=== PATIENT | male | born 1960 | race Caucasian/White ===

== ENCOUNTER → 2016-11-17 | Outpatient (CLI) | payer OTHER ==
[~2016-11-17] MED LIST: ARIXTRA7.5 MG/0.6 SC; BACTRIM,SEPT1 TABLET PO; CARVEDILOL3.125 MG PO; COREG6.25 M1 PO; COUMADIN2 MG PO; Coreg PO; ENOXAPARIN80 MG/0.8 SC; FLEXERIL10 MG PO; FOLIC ACID1 MG PO; FONDAPARIN7.5 MG/0.6 SC; GABAPENTIN100 MG PO; LORTAB 5-325 M1 EACH PO; LOSARTAN POTASS50 MG PO; Lasix PO; MIRALAX17 GM PO; MORPHINE SULFAT15 M1 PO; NEURONTIN300 MG PO; NITROGLYCERIN0.4 MG SL; NITROSTAT0.4 MG SL; OXYCODONE5 MG PO; PERCOCET 5/31 TABLET PO; PRAVACHOL20 MG PO; PRAVASTATIN SOD10 MG PO; PRINIVIL10 MG PO; ROXICODONE5 MG PO; VENTOLIN HFA18 GM IH; VOLTAREN75 MG PO; ZESTRIL,PRINIVI10 MG PO; ZESTRIL10 MG PO; Zestril,Prinivil PO
== END | disposition home or self-care (01) ==
LOC: NUC 09:29
DX: D69.3 Immune thrombocytopenic purpura (principal); M51.36 Other intervertebral disc degeneration, lumbar region; M17.12 Unilateral primary osteoarthritis, left knee
CPT/HCPCS: 78306; A9503

== ENCOUNTER 2017-03-22 10:37 | Emergency (ER) | payer OTHER ==
[~2017-03-22] VITALS: Ht 170.2 cm; Wt 94.6 kg
[~2017-03-22 10:37] MED LIST changes: +DEXAMETHASONE6 MG PO; +METFORMIN HCL500 MG PO; +MYCELEX10 MG PO; +PROAIR HFA8.5 GM IH
[2017-03-22 11:32] LABS: HEMATOCRIT 52.6 % (38.0-50.0); MCH 32.4 PG (29.0-34.0); MCV 95.3 FL (86-99); RBC DIS.WIDTH-CV 13.5 % (11.8-14.6); RED BLOOD COUNT 5.52 M/uL (4.00-5.50)
[2017-03-22 11:44] LABS: CHLORIDE 105 mEq/L (99-109); POTASSIUM 4.1 mEq/L (3.7-5.4); SODIUM 136 mEq/L (136-147)
[2017-03-22 11:46] LABS: GLUCOSE 157 mg/dL (70-99)
[2017-03-22 11:48] LABS: ANION GAP 12 MEQ/L (2-14)
[2017-03-22 11:50] LABS: GFR ESTIMATE (CALCULATED) > 59 mL/min/
[2017-03-22 11:51] LABS: UREA NITROGEN (BUN) 11 mg/dL (9-23)
[2017-03-22 12:29] LABS: MEAN PLAT.VOLUME 11.9 uM^3 (9.0-12.4); PLAT.SUFFICIENCY DECREASED; PLATELET COUNT 117 K/uL (156-360)
[2017-03-22] MEDS ORDERED: CLEOCIN300 MG PO (12:54)
[2017-03-22 13:00] VITALS: BP 145/94
[2017-03-23] MEDS ORDERED: COREG12.5 M1 PO (15:04)
[2017-03-23] MEDS ORDERED: LOSARTAN POTAS100 MG PO (15:05)
[2017-03-23] MEDS ORDERED: AMOX TR-K CLV1 EAC4 PO (15:06)
== END 2017-03-22 13:34 | disposition left against medical advice (07) ==
LOC: EME 10:37
PROVIDERS: Emergency Medicine
DX: L03.311 Cellulitis of abdominal wall (principal); I10 Essential (primary) hypertension; Z79.84 Long term (current) use of oral hypoglycemic drugs; Z87.891 Personal history of nicotine dependence
CPT/HCPCS: 74176; 80048; 83605; 85027; 87040; 99281; 99283

== ENCOUNTER 2017-03-23 12:17 | Inpatient (IN) | payer OTHER ==
[~2017-03-23] VITALS: Ht 170.2 cm; Wt 93.2 kg
[~2017-03-23 12:17] MED LIST changes: +CLEOCIN300 MG PO
[2017-03-23 14:28] LABS: BASOPHIL COUNT 0.1 K/uL (0-0.1); EOSINOPHIL (%) 0.7 % (0-5); EOSINOPHIL COUNT 0.1 K/uL (0-0.3); HEMATOCRIT 49.4 % (38.0-50.0); IMMATURE GRANULOCYTE (%) 0.8 % (0.0-0.7); IMMATURE GRANULOCYTE COUNT 0.1 K/uL; INSTRUMENT ABS NEUTROPHIL CT 11.8 K/uL; LYMPHOCYTE COUNT 2.7 K/uL (1.0-2.8); MCH 32.1 PG (29.0-34.0); MCHC 33.6 G/DL (30.0-36.0); MCV 95.6 FL (86-99); MEAN PLAT.VOLUME 11.6 uM^3 (9.0-12.4); MONOCYTE (%) 7.3 % (3-12); MONOCYTE COUNT 1.2 K/uL (0-0.8); NEUTROPHIL COUNT 11.8 K/uL (1.8-6.4); PLATELET COUNT 104 K/uL (156-360); RBC DIS.WIDTH-CV 13.2 % (11.8-14.6); RBC DIS.WIDTH-SD 47.4 % (39-53); RED BLOOD COUNT 5.17 M/uL (4.00-5.50); WHITE BLOOD COUNT 15.9 K/uL (4.1-10.2)
[2017-03-23 14:36] LABS: CHLORIDE 108 mEq/L (99-109); POTASSIUM 3.9 mEq/L (3.7-5.4); SODIUM 139 mEq/L (136-147)
[2017-03-23 14:38] LABS: GLUCOSE 174 mg/dL (70-99)
[2017-03-23 14:39] LABS: ANION GAP 10 MEQ/L (2-14)
[2017-03-23 14:42] LABS: GFR ESTIMATE (CALCULATED) > 59 mL/min/
[2017-03-23 14:43] LABS: UREA NITROGEN (BUN) 11 mg/dL (9-23)
[2017-03-23] MEDS ORDERED: COREG12.5 M1 PO (15:04)
[2017-03-23] MEDS ORDERED: LOSARTAN POTAS100 MG PO (15:05)
[2017-03-23] MEDS ORDERED: AMOX TR-K CLV1 EAC4 PO (15:06)
[2017-03-23 18:40] VITALS: BP 143/78
[2017-03-23 19:11] VITALS: BP 134/78
[2017-03-23 23:56] VITALS: BP 141/71
[2017-03-24 04:26] VITALS: BP 144/73
[2017-03-24 07:00] LABS: HEMATOCRIT 45.2 % (38.0-50.0); MCH 33.5 PG (29.0-34.0); MCHC 34.5 G/DL (30.0-36.0); RBC DIS.WIDTH-CV 13.6 % (11.8-14.6); RBC DIS.WIDTH-SD 48.6 % (39-53); RED BLOOD COUNT 4.66 M/uL (4.00-5.50); WHITE BLOOD COUNT 13.7 K/uL (4.1-10.2)
[2017-03-24 07:05] VITALS: BP 136/71
[2017-03-24 07:25] LABS: ANION GAP 9 MEQ/L (2-14); CHLORIDE 106 MEQ/L (99-109); GFR ESTIMATE (CALCULATED) > 59 mL/min/; GLUCOSE 124 mg/dL (70-99); POTASSIUM 3.8 MEQ/L (3.7-5.4); SAMPLE HEMOLYSIS CHECK 0; SAMPLE ICTERIC CHECK 0; SAMPLE LIPEMIA CHECK 0; SODIUM 138 MEQ/L (136-147); UREA NITROGEN (BUN) 12 mg/dL (9-23)
[2017-03-24 07:57] LABS: MEAN PLAT.VOLUME 11.4 uM^3 (9.0-12.4); PLAT.SUFFICIENCY DECREASED; PLATELET COUNT 101 K/uL (156-360)
[2017-03-24 11:10] LABS: POINT-OF-CARE METER ID UU14208750
[2017-03-24 11:19] VITALS: BP 144/72
[2017-03-24 15:49] VITALS: BP 150/86
[2017-03-24 17:18] LABS: POINT-OF-CARE METER ID UU14208750
[2017-03-24 20:25] VITALS: BP 161/86
[2017-03-24 21:40] LABS: POINT-OF-CARE METER ID UU14208750
[2017-03-25 00:01] VITALS: BP 155/70
[2017-03-25 06:17] LABS: POINT-OF-CARE METER ID UU14208750
[2017-03-25 07:16] LABS: BASOPHIL COUNT 0.1 K/uL (0-0.1); EOSINOPHIL (%) 1.2 % (0-5); EOSINOPHIL COUNT 0.2 K/uL (0-0.3); HEMATOCRIT 46.3 % (38.0-50.0); IMMATURE GRANULOCYTE (%) 0.5 % (0.0-0.7); IMMATURE GRANULOCYTE COUNT 0.1 K/uL; LYMPHOCYTE COUNT 2.8 K/uL (1.0-2.8); MCH 33.4 PG (29.0-34.0); MCHC 35.2 G/DL (30.0-36.0); MCV 94.9 FL (86-99); MEAN PLAT.VOLUME 11.6 uM^3 (9.0-12.4); MONOCYTE (%) 7.1 % (3-12); MONOCYTE COUNT 0.9 K/uL (0-0.8); NEUTROPHIL (%) 69.5 % (45-76); PLATELET COUNT 99 K/uL (156-360); RBC DIS.WIDTH-CV 13.2 % (11.8-14.6); RBC DIS.WIDTH-SD 46.1 % (39-53); RED BLOOD COUNT 4.88 M/uL (4.00-5.50)
[2017-03-25 07:44] LABS: ANION GAP 9 MEQ/L (2-14); CHLORIDE 106 MEQ/L (99-109); GFR ESTIMATE (CALCULATED) > 59 mL/min/; GLUCOSE 128 mg/dL (70-99); MAGNESIUM 1.7 mg/dl (1.3-2.7); POTASSIUM 3.9 MEQ/L (3.7-5.4); SAMPLE HEMOLYSIS CHECK 0; SAMPLE ICTERIC CHECK 0; SAMPLE LIPEMIA CHECK 0; SODIUM 138 MEQ/L (136-147); UREA NITROGEN (BUN) 11 mg/dL (9-23)
[2017-03-25 08:07] LABS: VANCOMYCIN, TROUGH 8.9 MCG/ML (10-20)
[2017-03-25 08:11] VITALS: BP 122/80
[2017-03-25 12:11] LABS: POINT-OF-CARE METER ID UU14208750
[2017-03-25 15:29] VITALS: BP 140/80
[2017-03-25 16:49] LABS: POINT-OF-CARE METER ID UU14208750
[2017-03-25 21:38] LABS: POINT-OF-CARE METER ID UU14208750
[2017-03-26 00:14] VITALS: BP 130/65
[2017-03-26 08:56] VITALS: BP 170/86
[2017-03-26 09:16] LABS: BASOPHIL COUNT 0.1 K/uL (0-0.1); EOSINOPHIL (%) 0.9 % (0-5); EOSINOPHIL COUNT 0.1 K/uL (0-0.3); HEMATOCRIT 48.9 % (38.0-50.0); IMMATURE GRANULOCYTE (%) 0.6 % (0.0-0.7); IMMATURE GRANULOCYTE COUNT 0.1 K/uL; INSTRUMENT ABS NEUTROPHIL CT 8.8 K/uL; LYMPHOCYTE COUNT 2.9 K/uL (1.0-2.8); MCH 31.7 PG (29.0-34.0); MCHC 33.9 G/DL (30.0-36.0); MCV 93.3 FL (86-99); MEAN PLAT.VOLUME 11.6 uM^3 (9.0-12.4); MONOCYTE (%) 5.8 % (3-12); MONOCYTE COUNT 0.7 K/uL (0-0.8); NEUTROPHIL (%) 69.3 % (45-76); NEUTROPHIL COUNT 8.8 K/uL (1.8-6.4); PLATELET COUNT 93 K/uL (156-360); RED BLOOD COUNT 5.24 M/uL (4.00-5.50); WHITE BLOOD COUNT 12.8 K/uL (4.1-10.2)
[2017-03-26 09:42] LABS: ANION GAP 10 MEQ/L (2-14); CHLORIDE 107 MEQ/L (99-109); GFR ESTIMATE (CALCULATED) > 59 mL/min/; GLUCOSE 129 mg/dL (70-99); MAGNESIUM 1.8 mg/dl (1.3-2.7); POTASSIUM 4.1 MEQ/L (3.7-5.4); SAMPLE HEMOLYSIS CHECK 0; SAMPLE ICTERIC CHECK 0; SAMPLE LIPEMIA CHECK 0; SODIUM 138 MEQ/L (136-147); UREA NITROGEN (BUN) 11 mg/dL (9-23)
[2017-03-26] MEDS ORDERED: BACTRIM,SEPT1 TABLET PO (10:04)
[2017-03-26] MEDS ORDERED: KEFLEX500 MG PO (10:04)
== END 2017-03-26 11:18 | disposition home or self-care (01) | DRG 603 ==
LOC: EME 12:17 → 2EAST 16:17 → EDOF 16:17 → 2EAST 18:15
PROVIDERS: Emergency Medicine; Internal Medicine
PROC: 0H97XZZ Drainage of Abdomen Skin, External Approach (ICD-10-PCS; principal; 2017-03-23)
DX: L02.211 Cutaneous abscess of abdominal wall (principal); L03.311 Cellulitis of abdominal wall; B95.62 Methicillin resistant Staphylococcus aureus infection as the cause of diseases classified elsewhere; C92.01 Acute myeloblastic leukemia, in remission; D68.2 Hereditary deficiency of other clotting factors; E11.9 Type 2 diabetes mellitus without complications; K21.9 Gastro-esophageal reflux disease without esophagitis; I11.0 Hypertensive heart disease with heart failure; I50.9 Heart failure, unspecified; I42.9 Cardiomyopathy, unspecified; D69.3 Immune thrombocytopenic purpura; I25.10 Atherosclerotic heart disease of native coronary artery without angina pectoris; F41.9 Anxiety disorder, unspecified; G43.909 Migraine, unspecified, not intractable, without status migrainosus; I44.7 Left bundle-branch block, unspecified; R97.20 Elevated prostate specific antigen [PSA]; D75.1 Secondary polycythemia; E66.9 Obesity, unspecified; Z86.718 Personal history of other venous thrombosis and embolism; I25.2 Old myocardial infarction; Z68.32 Body mass index [BMI] 32.0-32.9, adult; Z87.891 Personal history of nicotine dependence; Z86.73 Personal history of transient ischemic attack (TIA), and cerebral infarction without residual deficits; Z95.810 Presence of automatic (implantable) cardiac defibrillator
CPT/HCPCS: 80048; 80202; 82948; 83735; 85025; 85027; 87040; 87070; 87075; 87205; 93971; J0690; J1652; J1815; J1885; J3370

== ENCOUNTER 2017-06-13 19:36 | Inpatient (IN) | payer OTHER ==
[~2017-06-13] VITALS: Ht 170.2 cm; Wt 99.8 kg
[~2017-06-13 19:36] MED LIST changes: +AMOX TR-K CLV1 EAC4 PO; +COREG12.5 M1 PO; +KEFLEX500 MG PO; +LOSARTAN POTAS100 MG PO
[2017-06-13 20:37] LABS: HEMATOCRIT 47.5 % (38.0-50.0); MCH 31.9 PG (29.0-34.0); MCHC 34.1 G/DL (30.0-36.0); MCV 93.5 FL (86-99); MEAN PLAT.VOLUME 11.1 uM^3 (9.0-12.4); RBC DIS.WIDTH-CV 13.5 % (11.8-14.6); RBC DIS.WIDTH-SD 46.5 % (39-53); RED BLOOD COUNT 5.08 M/uL (4.00-5.50); WHITE BLOOD COUNT 16.8 K/uL (4.1-10.2)
[2017-06-13 20:47] LABS: CHLORIDE 104 mEq/L (99-109); POTASSIUM 4.2 mEq/L (3.7-5.4); SODIUM 136 mEq/L (136-147)
[2017-06-13 20:47] LABS: ADD MIUA? YES; BILIRUBIN NEGATIVE; BLOOD SMALL; COLOR YELLOW ((YELLOW)); GLUCOSE (STRIP) 50; KETONES NEGATIVE; LEUKOCYTES NEGATIVE; NITRITE NEGATIVE; PROTEIN (STRIP) >=500; SPECIFIC GRAVITY 1.018 (1.000-1.030); UROBILINOGEN 0.2 MG/DL (0.2-1.0)
[2017-06-13 20:48] LABS: GLUCOSE 185 mg/dL (70-99); INTER. NORMALIZED RATIO 1.3; PROTHROMBIN TIME 14.1 SEC (10.2-12.9)
[2017-06-13 20:50] LABS: ANION GAP 9 MEQ/L (2-14); PLATELET COUNT 51 K/uL (156-360)
[2017-06-13 20:51] LABS: PTT 29.6 SEC (25-37)
[2017-06-13 20:52] LABS: GFR ESTIMATE (CALCULATED) > 59 mL/min/
[2017-06-13 20:53] LABS: UREA NITROGEN (BUN) 16 mg/dL (9-23)
[2017-06-13 20:54] LABS: BACTERIA NONE SEEN /HPF; EPITHELIAL CELLS NONE SEEN /HPF; MUCUS TRACE /LPF; RED BLOOD CELLS 0-5 /HPF (0-5); UCUL ADDED? NO; WHITE BLOOD CELLS 0-5 /HPF (0-5)
[2017-06-13] MEDS ORDERED: LORAZEPAM0.5 MG PO (23:24)
[2017-06-13] MEDS ORDERED: ONDANSETRON ODT4 MG PO (23:26)
[2017-06-13] MEDS ORDERED: CLOTRIMAZOLE10 MG PO (23:27)
[2017-06-14 02:49] VITALS: BP 174/81
[2017-06-14 08:59] LABS: POINT-OF-CARE METER ID UU13113717
[2017-06-14 09:08] VITALS: BP 168/90
[2017-06-14 11:41] VITALS: BP 153/89
[2017-06-14 12:41] LABS: POINT-OF-CARE METER ID UU13113717
[2017-06-14 16:06] VITALS: BP 162/79
[2017-06-14 17:33] LABS: POINT-OF-CARE METER ID UU14188625
[2017-06-14 19:34] VITALS: BP 145/78
[2017-06-14 20:44] LABS: POINT-OF-CARE METER ID UU14188625
[2017-06-15 03:30] VITALS: BP 157/99
[2017-06-15 06:38] LABS: HEMATOCRIT 49.1 % (38.0-50.0); MCH 31.2 PG (29.0-34.0); MCV 94.6 FL (86-99); MEAN PLAT.VOLUME 12.5 uM^3 (9.0-12.4); RBC DIS.WIDTH-CV 13.3 % (11.8-14.6); RBC DIS.WIDTH-SD 46.7 % (39-53); RED BLOOD COUNT 5.19 M/uL (4.00-5.50); WHITE BLOOD COUNT 16.6 K/uL (4.1-10.2)
[2017-06-15 06:39] LABS: PLATELET COUNT 70 K/uL (156-360)
[2017-06-15 06:53] LABS: ANION GAP 12 MEQ/L (2-14); CHLORIDE 103 MEQ/L (99-109); GFR ESTIMATE (CALCULATED) > 59 mL/min/; GLUCOSE 162 mg/dL (70-99); POTASSIUM 4.2 MEQ/L (3.7-5.4); SAMPLE HEMOLYSIS CHECK 1; SAMPLE ICTERIC CHECK 0; SAMPLE LIPEMIA CHECK 0; SODIUM 137 MEQ/L (136-147); UREA NITROGEN (BUN) 9 mg/dL (9-23)
[2017-06-15 07:14] VITALS: BP 159/88
[2017-06-15 07:15] LABS: POINT-OF-CARE METER ID UU13113717
[2017-06-15 11:14] VITALS: BP 141/87
[2017-06-15 15:11] VITALS: BP 148/86
[2017-06-15 17:09] LABS: POINT-OF-CARE METER ID UU14188625
[2017-06-15 21:58] LABS: POINT-OF-CARE METER ID UU13113717
[2017-06-15 23:52] VITALS: BP 134/80
[2017-06-16 07:12] VITALS: BP 173/81
[2017-06-16 07:17] LABS: POINT-OF-CARE METER ID UU14188625
[2017-06-16 09:38] LABS: HEMATOCRIT 47.2 % (38.0-50.0); MCH 31.5 PG (29.0-34.0); MCHC 33.5 G/DL (30.0-36.0); RBC DIS.WIDTH-CV 13.3 % (11.8-14.6); RBC DIS.WIDTH-SD 46.1 % (39-53); RED BLOOD COUNT 5.02 M/uL (4.00-5.50); WHITE BLOOD COUNT 15.4 K/uL (4.1-10.2)
[2017-06-16 09:44] LABS: PLATELET COUNT 103 K/uL (156-360)
[2017-06-16 11:26] LABS: POINT-OF-CARE METER ID UU14188625
[2017-06-16 15:13] VITALS: BP 142/84
[2017-06-16 16:47] LABS: POINT-OF-CARE METER ID UU14188625
[2017-06-16 23:38] VITALS: BP 169/82
[2017-06-17 06:51] LABS: HEMATOCRIT 48.7 % (38.0-50.0); MCH 31.5 PG (29.0-34.0); MCHC 33.7 G/DL (30.0-36.0); MCV 93.5 FL (86-99); MEAN PLAT.VOLUME 11.2 uM^3 (9.0-12.4); RBC DIS.WIDTH-CV 13.2 % (11.8-14.6); RBC DIS.WIDTH-SD 45.1 % (39-53); RED BLOOD COUNT 5.21 M/uL (4.00-5.50); WHITE BLOOD COUNT 15.5 K/uL (4.1-10.2)
[2017-06-17 07:00] LABS: PLATELET COUNT 135 K/uL (156-360)
[2017-06-17 07:11] VITALS: BP 172/81
[2017-06-17 07:12] LABS: ANION GAP 9 MEQ/L (2-14); CHLORIDE 103 MEQ/L (99-109); GFR ESTIMATE (CALCULATED) > 59 mL/min/; GLUCOSE 157 mg/dL (70-99); POTASSIUM 4.1 MEQ/L (3.7-5.4); SAMPLE HEMOLYSIS CHECK 0; SAMPLE ICTERIC CHECK 0; SAMPLE LIPEMIA CHECK 0; SODIUM 138 MEQ/L (136-147); UREA NITROGEN (BUN) 10 mg/dL (9-23)
[2017-06-17 11:16] LABS: POINT-OF-CARE METER ID UU14188625
[2017-06-17] MEDS ORDERED: AMOX TR-K CLV1 EAC4 PO (13:01)
[2017-06-17] MEDS ORDERED: LEVAQUIN750 MG PO (13:01)
[2017-06-17 15:10] VITALS: BP 141/83
[2017-06-17 16:28] LABS: POINT-OF-CARE METER ID UU14188625
[2017-06-17 21:14] LABS: POINT-OF-CARE METER ID UU14188625
== END 2017-06-17 21:55 | disposition home or self-care (01) | DRG 871 ==
LOC: EME → EDBD 19:36 → EME 19:36 → 5SOUTH 06-14 00:49 → EDOF 06-14 00:49 → ENRESERV 06-14 00:53 → 5SOUTH 06-14 02:36
PROVIDERS: Emergency Medicine; Hospitalist; Physician Assistant
DX: A41.9 Sepsis, unspecified organism (principal); J18.9 Pneumonia, unspecified organism; J44.0 Chronic obstructive pulmonary disease with (acute) lower respiratory infection; E11.9 Type 2 diabetes mellitus without complications; D68.2 Hereditary deficiency of other clotting factors; G43.909 Migraine, unspecified, not intractable, without status migrainosus; C92.01 Acute myeloblastic leukemia, in remission; I44.7 Left bundle-branch block, unspecified; E78.5 Hyperlipidemia, unspecified; I11.0 Hypertensive heart disease with heart failure; I50.9 Heart failure, unspecified; D69.3 Immune thrombocytopenic purpura; K21.9 Gastro-esophageal reflux disease without esophagitis; I25.5 Ischemic cardiomyopathy; D75.1 Secondary polycythemia; L03.311 Cellulitis of abdominal wall; F12.20 Cannabis dependence, uncomplicated; I25.10 Atherosclerotic heart disease of native coronary artery without angina pectoris; I82.629 Acute embolism and thrombosis of deep veins of unspecified upper extremity; K59.00 Constipation, unspecified; M19.079 Primary osteoarthritis, unspecified ankle and foot; M48.061 Spinal stenosis, lumbar region without neurogenic claudication; M43.16 Spondylolisthesis, lumbar region; K40.20 Bilateral inguinal hernia, without obstruction or gangrene, not specified as recurrent; D68.51 Activated protein C resistance; F41.9 Anxiety disorder, unspecified; G89.29 Other chronic pain; K42.9 Umbilical hernia without obstruction or gangrene; M43.17 Spondylolisthesis, lumbosacral region; M54.16 Radiculopathy, lumbar region; R09.02 Hypoxemia; R65.20 Severe sepsis without septic shock; Z79.84 Long term (current) use of oral hypoglycemic drugs; Z95.810 Presence of automatic (implantable) cardiac defibrillator; C61 Malignant neoplasm of prostate
CPT/HCPCS: 71010; 71020; 74176; 80048; 80202; 81003; 82948; 83605; 85027; 85610; 85730; 87040; 87070; 87205; 94640; 94640 76; 94760; 94799; 99202; 99281; 99285; J0692; J1566; J1652; J1815; J2270; J2405; J2543; J3370; J7030; J7040; J7050; J8540